=== PATIENT | female | born 2000 | race Caucasian/White ===

== ENCOUNTER → 2020-02-16 | Emergency (ER) | payer MEDICAID ==
[~2020-02-16] VITALS: Ht 165.1 cm; Wt 90.0 kg
[~2020-02-16] MED LIST: NITROFURANTOIN 100MG M/M CAPSULE PO ONE; NITROFURANTOIN 100MG M/M CAPSULE PO SCH; POTASSIUM CHLORIDE 20MEQ TABLET SR PO ONE
[2020-02-16 12:39] VITALS: BP 127/82
[2020-02-16 13:44] LABS: CLARITY URINE CLOUDY (CLEAR); COLOR URINE DARK YELLOW (YELLOW); KETONES URINE 3+ (NEGATIVE); LEUKOCYTE ESTERASE URINE TRACE (NEGATIVE); NITRITE URINE NEGATIVE (NEGATIVE); OCCULT BLOOD URINE TRACE (NEGATIVE); PH URINE 5.5 (4.5-8.0); PROTEIN URINE 1+ (NEGATIVE); SPECIFIC GRAVITY URINE 1.033 (1.005-1.030)
[2020-02-16 14:00] LABS: *COCAINE SCREEN URINE NEGATIVE (NEGATIVE)
[2020-02-16 14:01] LABS: *AMPHETAMINES SCREEN URINE NEGATIVE (NEGATIVE); *BENZODIAZEPINES SCREEN URINE NEGATIVE (NEGATIVE); METHADONE URINE SCREEN NEGATIVE (NEGATIVE); OPIATES URINE SCREEN NEGATIVE (NEGATIVE); PHENCYCLIDINE URINE SCREEN NEGATIVE (NEGATIVE)
[2020-02-16 14:03] LABS: *BARBITURATES SCREEN URINE NEGATIVE (NEGATIVE)
[2020-02-16 14:05] LABS: BASOPHILS % 0.4 % (0.0-2.0); EOSINOPHILS % 0.1 % (0.0-5.0); HEMATOCRIT. 41.9 % (36.0-48.0); LYMPHOCYTES % 14.5 % (20.0-50.0); MEAN CORPUSCULAR HEMOGLOBIN 29.1 pg (28.0-32.0); MEAN PLATELET VOLUME 8.2 fl (7.4-10.4); MONOCYTES % 7.7 % (2.0-8.0); NEUTROPHILS % 77.3 % (40.0-76.0); PLATELET 312 x1000/uL (130-400); RED BLOOD CELL COUNT 4.82 mill/uL (4.2-5.4); RED CELL DISTRIBUTION WIDTH 14.1 % (11.6-14.6)
[2020-02-16 14:08] LABS: CANNABINOID URINE SCREEN PRESUMTIVE POSITIVE (NEGATIVE)
[2020-02-16 14:12] LABS: CHLORIDE 109 mEq/L (98-107)
[2020-02-16 14:17] LABS: ETHANOL BLOOD < 10 mg/dL; HCG SCREEN NEGATIVE
== END ==
LOC: ER 12:09
DX: R45.851 Suicidal ideations (principal); N39.0 Urinary tract infection, site not specified
CPT/HCPCS: 36415; 80053; 80305; 80307; 80320; 80329; 81003; 84703; 85025; 99283; G0480

== ENCOUNTER 2021-02-25 17:35 | Emergency (ER) | payer MEDICAID ==
[~2021-02-25] VITALS: Ht 165.1 cm; Wt 98.0 kg
[2021-02-25] MEDS ORDERED: IBUP-2028 MT (18:43)
[2021-02-25] MEDS ORDERED: TOPUD PO (18:43)
[2021-02-25 19:31] VITALS: BP 116/85
== END 2021-02-25 19:32 | disposition home or self-care (01) ==
LOC: EDBD 17:35 → ER 17:35
DX: U07.1 COVID-19 (principal); J02.9 Acute pharyngitis, unspecified
CPT/HCPCS: 99283; C9803; U0003; U0005

== ENCOUNTER 2021-10-14 17:21 | Emergency (ER) | payer MEDICAID ==
[~2021-10-14] VITALS: Ht 167.6 cm; Wt 101.0 kg
[~2021-10-14 17:21] MED LIST changes: +IBUP-2028 MT; -NITROFURANTOIN 100MG M/M CAPSULE PO ONE; -NITROFURANTOIN 100MG M/M CAPSULE PO SCH; -POTASSIUM CHLORIDE 20MEQ TABLET SR PO ONE; +TOPUD PO
[2021-10-14 17:24] VITALS: BP 148/92
[2021-10-14] MEDS ORDERED: AMOX-494 MT (20:29)
[2021-10-14] MEDS ORDERED: IBUP-2029 MT (20:29)
== END 2021-10-14 20:45 | disposition home or self-care (01) ==
LOC: ER 17:21
DX: J03.90 Acute tonsillitis, unspecified (principal)
CPT/HCPCS: 81025; 99282

== ENCOUNTER 2021-12-16 12:07 | Emergency (ER) | payer MEDICAID, OTHER ==
[~2021-12-16] VITALS: Ht 162.6 cm; Wt 94.0 kg
[~2021-12-16 12:07] MED LIST changes: +AMOX-494 MT; +IBUP-2029 MT
[2021-12-16 12:17] VITALS: BP 142/82
[2021-12-16] MEDS ORDERED: ACETAMINOPHEN 325MG TABLET PO ONE (15:45)
== END 2021-12-16 18:26 | disposition home or self-care (01) ==
LOC: ER 12:07
DX: J06.9 Acute upper respiratory infection, unspecified (principal); Z20.822 Contact with and (suspected) exposure to COVID-19
CPT/HCPCS: 81025; 87426; 99283; C9803